=== PATIENT | male | born 1965 | race Caucasian/White ===

== ENCOUNTER 2018-01-09 13:33 | Day surgery (SDC) | payer MEDICAID ==
[~2018-01-09] VITALS: Ht 177.8 cm; Wt 94.5 kg
[2018-01-09 13:20] VITALS: BP 103/71
[2018-01-09 13:40] VITALS: BP 115/78
[2018-01-09] MEDS ORDERED: MIDAZolam 5mg/5ml vial ONE ×2 (13:51→13:52)
[2018-01-09] MEDS ORDERED: fentaNYL/PF 50MCG/1 ML 2ML syringe ONE (13:51)
[2018-01-09] MEDS ORDERED: NO HOME MEDS (13:58)
[2018-01-09 14:30] VITALS: BP 114/65
[2018-01-09 14:40] VITALS: BP 109/69
[2018-01-09 14:50] VITALS: BP 102/61
[2018-01-09 15:00] VITALS: BP 119/58
== END 2018-01-09 15:10 | disposition home or self-care (01) ==
LOC: GI LAB 13:33
PROVIDERS: ATTEND Internal Medicine Gastroenterology
DX: K52.89 Other specified noninfective gastroenteritis and colitis (principal); K57.30 Diverticulosis of large intestine without perforation or abscess without bleeding; Z87.891 Personal history of nicotine dependence; Z98.890 Other specified postprocedural states
CPT/HCPCS: 45380; 99152; J2250; J3010; J7030; A4620; G0500